=== PATIENT | male | born 1950 | race Two or more races ===

== ENCOUNTER 2022-03-14 07:24 | Outpatient (CLI) | payer OTHER | END 2022-03-14 07:26 | disposition home or self-care (01) | LOC: NUCLEAR 07:24 | PROVIDERS: ATTEND Specialist | DX: I10 Essential (primary) hypertension (principal) | CPT/HCPCS: 78452; 93017; A9500; J0153 ==

== ENCOUNTER 2024-03-01 07:07 | Outpatient (CLI) | payer OTHER | END 2024-03-01 07:08 | disposition home or self-care (01) | LOC: NUCLEAR 07:07 | PROVIDERS: ATTEND Specialist | DX: I11.9 Hypertensive heart disease without heart failure (principal) | CPT/HCPCS: 78452; 93017; A9500 ==